=== PATIENT | male | born 1980 | race African-American/Black ===

== ENCOUNTER 2020-06-30 17:54 | Emergency (ER) | payer OTHER ==
[~2020-06-30] VITALS: Ht 170.2 cm; Wt 81.6 kg
[2020-06-30 18:07] VITALS: TEMP 97.8
[2020-06-30 18:37] LABS: PLATELET COUNT 290 K/uL (142-355)
[2020-06-30 18:45] LABS: POTASSIUM 3.6 mmol/L (3.6-5.2)
[2020-06-30 19:49] VITALS: BP 150/89
== END 2020-06-30 19:49 | disposition home or self-care (01) ==
LOC: ED 17:54
PROVIDERS: Hospitalist
DX: N13.2 Hydronephrosis with renal and ureteral calculous obstruction (principal); Z87.442 Personal history of urinary calculi
CPT/HCPCS: 36415; 80053; 81000; 85027; 96360; 96361; 96365; 96375; 99284; J0696; J1170; J1885; J2405